=== PATIENT | male | born 1995 | race Caucasian/White ===

== ENCOUNTER 2023-11-13 12:08 | Outpatient (CLI) | payer MEDICAID, SELFPAY | END 2023-11-13 12:09 | disposition home or self-care (01) | LOC: AMB 11-18 10:40 | PROVIDERS: PCP Pediatrics; Visit Provider Student in an Organized Health Care Education/Training Program | DX: R07.89 Other chest pain (principal) | CPT/HCPCS: A0425; A0427 ==

== ENCOUNTER 2023-11-13 12:45 | Emergency (ER) | payer MEDICAID, SELFPAY ==
[2023-11-13] VITALS (13 sets, daily range): BP systolic 121–142; BP diastolic 74–85; PULSE 66–87; RESP 16; TEMP 36.9; O2SAT 96–98; BMI 24.4
--- NOTE | 2023-11-13 13:11 | ED_ITS ---
HPI - General Adult General Chief complaint: Chest Pain Stated complaint: chest pain Time Seen by Provider: 11/13/23 12:47 History of Present Illness HPI narrative: Patient is now Day 2 in a sober treatment house in [place]. He reports that at about 12:15 today he began to have localized chest pain at 8/10 and this lasted for about 35 minutes. He is now pain free. He reports similar episodes in the past when coming off from meth. He last used 4 days ago . EMS administered 325 ASA chewable. 27-year-old man presenting to the emergency department with concern of chest discomfort. He describes a bubbling sensation in his mid sternum he has had before. He says this lasted about 10 minutes. Not short of breath. He did note some tingling in his right hand in particular. Later reflex that he had been resting with his arms crossed, quite flexed at each elbow. Denies that he was hyperventilating. Is in treatment locally for meth use. Living in a sober home. Last used 4 days ago he says. He used meth primarily via IV but also did smoke it historically. Has had similar discomfort before. Never been diagnosed with pneumothorax or pneumomediastinum. EMS gave aspirin. He does arrive via EMS/ambulance. I note a number of scrapes/scabs on his skin particularly right ankle and left elbow-recent skateboard/long board accident. Related Data Home Medications ?Medication ?Instructions ?Recorded ?Confirmed No Known Home Medications 11/13/23 11/13/23 Allergies Allergy/AdvReac Type Severity Reaction Status Date / Time No Known Drug Allergies Allergy Verified 11/13/23 12:59 Review of Systems Status of ROS: Reports: 6 or more systems reviewed and unremarkable except as noted in History and below [facility] [place] Social History Smoking Status: Current every day smoker What tobacco products do you use: cigarettes Do you use any of these nicotine containing products: Vaping Products Second hand tobacco smoke exposure: No Non-prescribed substance use: former substance user Exam Narrative: Exam Narrative: Pleasant. NAD. Seems a little sleepy. Breathing easily. Oropharynx with at least 1 tooth broken off at the gum line but otherwise the dentition looks to be in good repair. Neck is supple without lymphadenopathy. No supraclavicular crepitus. Lungs are clear with breath sounds throughout. Heart in regular rate and rhythm without murmur rub or gallop. No pain to palpation over the chest or abdomen. Masses. Scabs on extremities as noted above. No inflammatory changes surrounding them to suggest infection. Well-perfused peripherally. Moving all extremities without difficulty with good strength. Const: Vital Signs, click to edit/add: Vital Signs - 24 hr 11/13/23 12:57 11/13/23 12:58 11/13/23 13:00 Temperature 98.4 F Pulse Rate 80 81 Pulse Rate [Pulse Oximeter] 73 Respiratory Rate 16 Blood Pressure 132/85 Blood Pressure [Ri ght Upper Arm] 132/85 Pulse Oximetry 96 97 98 Oxygen Delivery Me thod Room Air 11/13/23 13:00 11/13/23 13:01 11/13/23 13:15 Temperature Pulse Rate 82 80 66 Pulse Rate [Pulse Oximeter] Respiratory Rate Blood Pressure 133/78 Blood Pressure [Ri ght Upper Arm] Pulse Oximetry 96 96 98 Oxygen Delivery Me thod 11/13/23 13:22 11/13/23 13:30 11/13/23 13:42 Temperature Pulse Rate 68 77 72 Pulse Rate [Pulse Oximeter] Respiratory Rate Blood Pressure 142/82 H 135/75 Blood Pressure [Ri ght Upper Arm] Pulse Oximetry 98 97 98 Oxygen Delivery Me thod 11/13/23 13:45 11/13/23 14:00 11/13/23 14:01 Temperature Pulse Rate 85 80 74 Pulse Rate [Pulse Oximeter] Respiratory Rate Blood Pressure 125/77 Blood Pressure [Ri ght Upper Arm] Pulse Oximetry 98 98 98 Oxygen Delivery Me thod 11/13/23 14:15 11/13/23 14:21 Temperature Pulse Rate 70 87 Pulse Rate [Pulse Oximeter] Respiratory Rate Blood Pressure 121/74 Blood Pressure [Ri ght Upper Arm] Pulse Oximetry 98 98 Oxygen Delivery Me thod Documenting provider has reviewed patient's vital signs: yes Course Vital Signs Vital signs: Initial Vital Signs Pulse Rate 80 11/13/23 12:57 Blood Pressure 132/85 11/13/23 12:57 Blood Pressure Mean 100 11/13/23 12:57 Pulse Oximetry 96 11/13/23 12:57 Vital Signs Pulse Rate 80 11/13/23 12:57 Blood Pressure 132/85 11/13/23 12:57 Pulse Oximetry 96 11/13/23 12:57 Temperature 98.4 F 11/13/23 13:00 Pulse Rate 87 11/13/23 14:21 Respiratory Rate 16 11/13/23 13:00 Blood Pressure 121/74 11/13/23 14:21 Pulse Oximetry 98 11/13/23 14:21 Oxygen Delivery Method Room Air 11/13/23 13:00 Medical Decision Making MDM Narrative Medical decision making narrative: Differential would include ischemic cardiovascular disease which I think is less likely but certainly possible. Maybe more likely would be pneumothorax possible pneumonia. Vascular disruption I suppose as well but less likely. Checking D-dimer for this and potential pulmonary embolus. Pericarditis, pleuritis. Anxiety might be contributing. Movements of upper abdominal intestinal gas? Labs are reassuring. No events during time of monitoring the emergency department. Chest x-ray reviewed by me was without pneumomediastinum or infiltrate and otherwise with normal silhouette to mediastinum See patient discharge plan for further discussion/plan Lab Data Lab results reviewed: Yes I reviewed the patient's lab results Labs: Lab Results 11/13/23 Range/Units 13:39 WBC 7.99 (4.50-11.00) K/uL RBC 4.71 (4.30-5.90) m/uL Hgb 14.1 (13.5-17.5) gm/dL Hct 43.0 (37.0-53.0) % MCV 91 (80-100) fL MCH 30 (26-34) pg MCHC 33 (32-36) gm/dL RDW Coeff of Katia 13.2 (11.5-15.5) % Plt Count 270 (140-440) K/uL Neut % (Auto) 65.2 (42.0-72.0) % Lymph % (Auto) 22.4 (20-44) % Kemper % (Auto) 7.3 (0.0-11.0) % Eos % (Auto) 4.0 (0.0-7.0) % Baso % (Auto) 0.8 (0.0-3.0) % Neut # (Auto) 5.22 (1.7-7.0) K/uL Lymph # (Auto) 1.79 (0.90-2.90) K/uL Kemper # (Auto) 0.60 (0.00-0.90) K/UL Eos # (Auto) 0.32 (0.00-0.50) K/uL Baso # (Auto) 0.06 (0.00-0.30) K/uL Abs Immat Gran (auto) 0.02 (0.00-0.30) K/uL Imm/Tot Granulo (auto) 0.3 % D-Dimer Quant (PE/DVT) < 0.27 (0.00-0.50) ug/ml Sodium 139 (135-149) mmol/L Potassium 4.3 (3.6-5.1) mmol/L Chloride 104 (96-114) mmol/L Carbon Dioxide 30 (20-32) mmol/L Anion Gap 5 L (7-15) mEq/L BUN 11 (5-24) mg/dL Creatinine 0.7 (0.5-1.5) mg/dL Estimated Creat Clear 172.44 Estimated GFR 129 ml/min Glucose 97 (60-115) mg/dL Calcium 9.8 (8.4-10.6) mg/dL Magnesium 2.0 (1.5-2.6) mg/dL Troponin I 0.01 (0.01-0.04) ng/mL C-Reactive Protein < 0.5 L (0.5-1.0) mg/dL NT-Pro-B Natriuret Pep 47 pg/mL POC Troponin I 0.00 L (0.01-0.04) ng/ml ECG Data Attestation: I personally reviewed and interpreted this ECG as follows: (Normal sinus rhythm at a rate of 71. no delta wave. No ischemic changes.) Discharge Plan Discharge Clinical Impression: Chest discomfort Patient Disposition: Home w/ Parent or Adult Condition: Stable Additional Instructions: I am afraid I can not tell you what the cause was of this discomfort or sensation. You seem safe otherwise. No indication of injury to your heart. Best wishes with your continued sobriety. Prescriptions: No Action No Known Home Medications Follow Up/Referrals: Wilfrido Mccoy DO [Primary Care Provider] - Stand Alone Forms: My[facility] Info Instructions
--- NOTE | 2023-11-13 13:28 | XR_ITS ---
Patient: TEVIN ABRAHAM Facility:?[facility] Patient ID:?[id number] Site Patient ID:?[id number]. Site :?[id number] Study:?XRay-Chest Portable-11/13/2023 1:38:39 PM Ordering Physician:?Yuval Mccullough Final Report: INDICATION: Mid left sternal chest pain. TECHNIQUE: Chest 2 portable views. COMPARISON: None. FINDINGS: No pneumothorax or pleural effusion. Lungs are clear. Cardiac and mediastinal contours are within normal limits. Upper abdomen and osseous structures as imaged show no acute abnormality. IMPRESSION: No evidence of acute cardiopulmonary disease. Dictated by Yogesh Jenkins MD @ 11/13/2023 1:48:00 PM Signed by:?Yogesh Jenkins MD @11/13/2023 1:48:00 PM (Electronic Signature)
[2023-11-13 13:46] LABS: Basophils Absolute Auto 0.06 K/uL (0.00-0.30); Basophils Percent Auto 0.8 % (0.0-3.0); Eosinophils Absolute Auto 0.32 K/uL (0.00-0.50); Hemoglobin* 14.1 gm/dL (13.5-17.5); Immature Granulocytes Abs Auto 0.02 K/uL (0.00-0.30); Immature Granulocytes Pct Auto 0.3 %; Lymphocytes Absolute Auto 1.79 K/uL (0.90-2.90); Lymphocytes Percent Auto 22.4 % (20-44); Mean Corpuscular HGB Conc 33 gm/dL (32-36); Mean Corpuscular Hemoglobin 30 pg (26-34); Mean Corpuscular Volume 91 fL (80-100); Monocytes Percent Auto 7.3 % (0.0-11.0); Neutrophils Absolute Auto 5.22 K/uL (1.7-7.0); Neutrophils Percent Auto 65.2 % (42.0-72.0); Platelet Count* 270 K/uL (140-440); RDW Coefficient of Variation % 13.2 % (11.5-15.5); Red Blood Count 4.71 m/uL (4.30-5.90); Slide Review Reflex No; White Blood Count* 7.99 K/uL (4.50-11.00)
[2023-11-13 14:13] LABS: Troponin I* 0.01 ng/mL (0.01-0.04)
[2023-11-13 14:20] LABS: NT Pro B Type NatriureticPept* 47 pg/mL
[2023-11-13 14:23] LABS: D Dimer Quantitative* < 0.27 ug/ml (0.00-0.50)
[2023-11-13 14:25] LABS: Chloride* 104 mmol/L (96-114); Potassium* 4.3 mmol/L (3.6-5.1); Sodium* 139 mmol/L (135-149)
[2023-11-13 14:28] LABS: Creatinine* 0.7 mg/dL (0.5-1.5); Est. Creatinine Clearance* 172.44; Estimated Glomerular Filt Rate 129 ml/min
[2023-11-13 14:29] LABS: Anion Gap 5 mEq/L (7-15); Blood Urea Nitrogen* 11 mg/dL (5-24); Calcium* 9.8 mg/dL (8.4-10.6); Carbon Dioxide* 30 mmol/L (20-32); Glucose* 97 mg/dL (60-115)
[2023-11-13 14:33] LABS: C Reactive Protein* < 0.5 mg/dL (0.5-1.0)
== END 2023-11-13 15:20 | disposition home or self-care (01) ==
PROVIDERS: Emergency Provider Family Medicine; PCP Pediatrics
DX: R07.9 Chest pain, unspecified (principal)
CPT/HCPCS: 36415; 71045; 80048; 83735; 83880; 84484; 85025; 85379; 86140; 93005; 99284; 99285